=== PATIENT | female | born 2005 | race Caucasian/White ===

== ENCOUNTER 2025-04-21 15:09 | Emergency (ER) | payer BC, SELFPAY ==
[2025-04-21] VITALS (9 sets, daily range): BP systolic 130–151; BP diastolic 76–93; PULSE 85–112; RESP 16; TEMP 36.9; O2SAT 97–100; BMI 31.9
--- OUTSIDE RECORDS SUMMARY | 2025-04-21 15:11 | XMS_ITS | Clinical Summary ---
Author Organization [facility] Address [address] [place] [id number] Care Team Providers Care Volunteer Services Director Name Role Phone Heike Bradley Primary Care Provider Allergies Active Allergy Reactions Criticality Noted Date Comments [place] Flavor Vomiting 03/13/2015 Milk Runny Nose 03/13/2015 Medications triamcinolone 0.5 % ointmentIndicat ions:Chronic eczema Apply topically to affected area(s) two times daily. 15 g 3 5 Active triamcinolone (ARISTOCORT) 0.1 % ointmentIndicat ions:Chronic eczema Apply topically to affected area(s) 2 times daily. Use for up to 2 weeks at a time. 30 g 1 2 04/14/20 25 Discontinu ed(*Medica tion adjustment ) Hospital, Clinic, or Other Facility Administered Medication Ordered Dose Route Frequency Start Date End Date Status medroxyPROGESTERone acetate (contraceptive) (DEPO-PROVERA) injection 150 mgIndications:Encount er for initial prescription of injectable contraceptive 150 mg IM Q 3 MONTHS (12 WEEKS) 03/06/2025 02/05/2026 Active Active Problems No known active problems Encounters Date Type Department Care Team Description 04/21/2025 Nurse Triage [facility] [address] [place] [address] Heike Bradley PA Headache; Neurologic Problem 04/14/2025 1:40 PM CDT Office Visit [facility] [address] [facility] [id number] Heike Bradley PA Well Child (19 years old); Medication Management (Discuss depo and how its going, will need orders for next shot); Derm Problem (Check rash in armpit and now has spot on check); Concerns (Head feels pressure and ears get static, only lasts for a couple minutes. This happens twice a week this summer) 04/13/2025 Travel 03/06/2025 1:15 PM CDT Nurse/Clinic Staff Only [facility] [address] [facility] [id number] Immunization/Injecti on (DEPO-PROVERA INJECTION ) 03/05/2025 Travel from Last 3 Months Immunizations Immunization Administration Dates Next Due DTaP 10/31/2006 [id number] (Pediarix) 01/09/2006,2005,1 DTaP-IPV (Kinrix) 07/20/2010 HIB PRP-OMP (PedvaxHIB) 10/31/2006,2005, HPV 9 (Gardasil 9) 04/14/2020,04/15/2019 Hepatitis A (Peds) 07/13/2007,10/31/2006 MENINGOCOCCAL VACCINE 2 VIAL 2MO-55YO (MENVEO) 03/23/2022,04/21/2017 MMR 07/20/2010,07/21/2006 Meningococcal B 04/12/2024 Pneumococcal conj 13-Valent (Prevnar 13) 07/20/2010 Pneumococcal conj 7-Valent (Prevnar 7) 0 10/31/2006,01/09/2006,2005,09/08 Tdap 04/21/2017 Varicella Vaccine 07/21/2006 Family History Medical History Relation Name Comments Good Health Brother Hypertension Father Diabetes Maternal Grandfather Atrial fibrillation Maternal Grandmother Allergies Mother Relation Name Status Comments Brother Alive Father Alive Maternal Grandfather Alive Maternal Grandmother Alive Mother Alive Paternal Grandfather Paternal Grandmother Alive Social History Tobacco Use Types Packs/Day Years Used Date Smoking Tobacco: Never Smokeless Tobacco: Never Tobacco Cessation:Counseling Given: Yes Comments:no passive smoke exposure Alcohol Use Standard Drinks/Week Comments Never 0 (1 standard drink = 0.6 oz pur e alcohol) PHQ-2 Answer Date Recorded PHQ-2 TOTAL SCORE 0 04/14/2025 Social Connections Answer Date Recorded Do you often feel lonely or isolated from those around you? 0 04/14/2025 Financial Resource Strain Answer Date R ecorded Difficulty of Paying Living Expenses 3 04/14/2025 Difficulty of Paying Living Expenses Not on file 04/14/2025 Food Insecurity Answer Date Recorded Do you worry your food will run out before you are able to buy more? 1 04/14/2025 Transportation Needs Answer Date Record ed Does lack of transportation keep you from medica l appointments? 1 04/14/2025 Does lack of transportation keep you from work, meetings or getting things that you need? 1 04/14/2025 Housing Stability Answer Date Recorded What is your housing situation today? 1 04/14/2025 Utilities Answer Date Recorded Do you have trouble paying f or utilities (for example, heat, electricity, water, phone)? 1 04/14/2025 Comments No Sex and Gender Information Value Date Recorded Sex Assigned at Not on file Legal Sex Female 7:12 AM [employer] Gender Identity Not on file Sexual Orientation Not on file Travel History Travel Start Travel End [place] 04/05/2025 04/05/2025 Obstetrics History Last Filed Vital Signs Vital Sign Reading Time Taken Comments Blood Pressure 123/77 04/14/2025 1:44 PM CDT Pulse 121 04/14/2025 1:44 PM CDT Temperature 36.9 C (98.5 F) 06/21/2023 9:51 AM CDT Respiratory Rate 14 06/21/2023 9:51 AM CDT Oxygen Saturation 100% 03/06/2025 1:29 PM CDT Inhaled Oxygen Concentration - - Weight 81.6 kg (180 lb) 04/14/2025 1:44 PM CDT Height 160.3 cm (5' 3.1) 04/14/2025 1:44 PM CDT Head Circumference 86 cm 07/13/2007 2:08 PM CDT Head Circumference Percentile 100.00% 07/13/2007 2:08 PM CDT Growth Chart: CDC (Girls, 0- 36 Months) Body Mass Index 31.78 04/14/2025 1:44 PM CDT Plan of Treatment Health Maintenance Due Date Last Done Comments Hepatitis C screening for age 18-79 2023 COVID-19 vaccine series ( season) 2024 02/20/2021, 01/30/2021 Chlamydia for age 16-24 04/12/2025 04/12/2024 Influenza Vaccine (#1) 2025 BMI (ht and wt on same day) for age 18+ 04/14/2026 04/14/2025, 04/12/2024 Depression screening for age 12+ 04/14/2026 04/14/2025, 04/12/2024, 02/22/2023, Additional history exists Well Child Check for age 3-20 04/14/2026 04/14/2025, 04/12/2024, 02/22/2023, Additional history exists Tetanus booster 04/21/2027 04/21/2017 Hepatitis B series for 19+ Completed 01/09, 2005, 2005 Pneumococcal series for age 6-49 Aged Out 07/20/2010, 10/31/2006, 01/09/2006, Additional history exists No longer eligible based on patient's age to complete this topic HPV series for age 9-26 Completed 04/14/2020, 04/15 Meningococcal series for age 11-21 Completed 03/23/2022, 04/21/2017 HIV for age 15-65 Completed 02/22/2023 Procedures Procedure Name Priority Date/Time Associated Diagnosis Comments GC CHLAMYDIA TRACH PROBE Routine 04/12/2024 11:20 AM CDT Screen for STD (sexually transmitted disease) LC HIV-1/O/2, 4TH GENERATION Routine 02/22/2023 3:28 PM CDT Screening for HIV (human immunodeficiency virus) from Last 3 Months or Most Recently Relevant to Health Maintenance Results * GC CHLAMYDIA TRACH PROBE (04/12/2024 11:20 AM CDT) CHLAMYDIA PROBE Negative 4:15 AM CDT [facility] N GONORRHOEAE PROBE Negative 04/13/2024 4:15 AM CDT [facility] Other URINE SPECIMEN / Unknown Non-Blood / Unknown 04/12/2024 11:20 AM CDT 04/12/2024 11:36 AM CDT Soila Ortega MD MICROBIOLOGY Final R esult [facility] [address] [place] [address], * HIV-1/O/2, 4TH GENERATION (02/22/2023 3:28 PM CDT) [facility] HIV Scr 4th Gen Non Reactive Non Reactive 02/25/2023 8:[address] [facility] ([facility]) Comment: HIV Negative HIV-1/HIV-2 antibodies and HIV-1 p24 antigen were NOT detected. There is no laboratory evidence of HIV infection. Blood BLOOD SPECIMEN / Unknown Venipuncture / Unknown 02/22/2023 3:28 PM CDT 02/22/2023 3:30 PM CDT Narrative [facility] ([facility]) - 02/25/2023 8:36 AM CDT Performed at: [address] [place] [id number] Paper Box Maker: Dante Rich MD, Phone: [phone] Soila Ortega MD LABORATORY Final R esult [facility] ([facility]) [address] [place] [id number], from Last 3 Months or Most Recently Relevant to Health Maintenance Insurance [facility] [employer] Care Teams Volunteer Services Director Relationship Specialty Start Date End Date Heike Bradley PA [address] [place] [address] PCP - General Physician Refrigeration Houseman 03/19/25
--- NOTE | 2025-04-21 18:41 | ED.NEUROSD ---
HPI - Neuro Symptoms/Deficit General Time Seen by Provider: 18:41 <Radha Forrester MD - Last Filed: 04/22/25 09:56> Date Seen: 04/21/25 <Radha Forrester MD - Last Filed: 04/22/25 09:56> Chief Complaint: Neuro Symptoms/Altered Deficit <Radha Forrester MD - Last Filed: 04/22/25 09:56> Stated Complaint: bells palsy symptoms <Radha Forrester MD - Last Filed: 04/22/25 09:56> Time Seen by Provider: 04/21/25 18:40 <Radha Forrester MD - Last Filed: 04/22/25 09:56> Source: patient and RN notes reviewed <Radha Forrester MD - Last Filed: 04/22/25 09:56> Mode of arrival: ambulatory <Radha Forrester MD - Last Filed: 04/22/25 09:56> Limitations: no limitations <Radha Forrester MD - Last Filed: 04/22/25 09:56> History of Present Illness HPI Narrative: This 19-year-old female was referred by her chiropractor for possibility of right Saucedo's palsy. They did contact the clinic and the clinic told them to call 911. Patient has had right facial numbness, feels like her cheek and lower face on the right side have had anesthesia ill like at the dentist. She has a severe headache with this, it is throughout her head. No visual changes. No ear changes. She still has the taste that is normal in her mouth. She does not feel like she is not blinking, notices no eye dryness or visual changes. She felt like her right eye was hurting with this headache. She does have a history of migraines but has not had 1 for a while. She got glasses which has seemingly helped. When she has had migraines before it sounds as if she almost becomes catatonic and cannot speak, cannot move. She states her hands and feet will become numb and tingly. She is here with her mom. She feels that she is maybe not really using her right side of her face to talk but speech certainly sounds normal to me. Her symptoms started about 10:00 a.m. last night per her report, maybe a bit earlier and nursing report. She has been eating and drinking without any difficulty. Her chiropractor gave her an adjustment and acupuncture. There has been no worsening or improvement in any symptoms since the chiropractor. Her headache is about 6/10. She did noted tick bite about 10 days ago, nursing staff did order Lyme panel in triage thinking that this could be Saucedo's palsy. They are showing me a picture of the tick, it is a classic wood tick with the white brownish [place], it is not reddish like ago deer tick, this is a classic normal wood tick that does not carry Lyme disease or the tick-borne diseases. She has been ambulatory, no arm or leg numbness tingling. <Radha Forrester MD - Last Filed: 04/22/25 09:56> Related Data Home Medications: Home Medications ?Medication ?Instructions ?Recorded ?Confirmed No Known Home Medications 04/21/25 04/21/25 <Radha Forrester MD - Last Filed: 04/22/25 09:56> Allergies/Adverse Reactions: Allergies Allergy/AdvReac Type Severity Reaction Status Date / Time brooke Allergy Unknown Verified 04/21/25 15:25 <Radha Forrester MD - Last Filed: 04/22/25 09:56> Review of Systems Status of ROS: Reports: 6 or more systems reviewed and unremarkable except as noted in History and below <Radha Forrester MD - Last Filed: 04/22/25 09:56> [facility] Social History: Social History How often do you have a drink containing alcohol: never AUDIT-C Alcohol total score: 0 Non-prescribed substance use: denies use <Radha Forrester MD - Last Filed: 04/22/25 09:56> Exam Const: Vital Signs, click to edit/add: Vital Signs - 24 hr 04/21/25 15:19 04/21/25 20:00 04/21/25 20:14 Temperature 98.5 F Pulse Rate 87 Pulse Rate [Pulse Oximeter] 97 Respiratory Rate 16 16 Blood Pressure 136/77 Blood Pressure [Ri ght Upper Arm] 135/82 Pulse Oximetry 99 99 Oxygen Delivery Me thod Room Air 04/21/25 20:15 04/21/25 20:30 04/21/25 20:32 Temperature Pulse Rate 85 91 90 Pulse Rate [Pulse Oximeter] Respiratory Rate Blood Pressure 130/76 Blood Pressure [Ri ght Upper Arm] Pulse Oximetry 98 100 100 Oxygen Delivery Me thod 04/21/25 20:33 04/21/25 22:22 04/21/25 22:23 Temperature Pulse Rate 91 112 H Pulse Rate [Pulse Oximeter] Respiratory Rate Blood Pressure 151/93 H Blood Pressure [Ri t Upper Arm] Pulse Oximetry 97 99 Oxygen Delivery Me thod This 19-year-old female is alert, interactive, no apparent distress. She has full motor function of her face, eyes closed appropriately, watch her blink in both eyes have the same arc of blinking. The right eye does close. Her smile is normal. Resting, there might be a little slight lowering of the right corner of her mouth but her smile is symmetric. Oropharynx is normal, tongue protrudes midline, normal elevation of the soft palate. Dentition good repair, no erythema of the gums. They did worry that she has a wisdom tooth on that right lower jaw that needs to come out, do not see any overt signs of problems. She notes she is not feeling any significant pain from this tooth right now. She feels below the cheek that there is some diminished sensation on light touch, she states it feels softer than on the left side. It is below the zygomatic arch on the cheek above the jaw. Neck is supple, no adenopathy, no thyromegaly masses or nodules. TMs canals are normal, no vesicles or abnormalities noted. Lungs are clear, good air entry, no wheezing crackles. CV regular rate and rhythm, no murmur, normal S1-S2. Abdomen soft, nontender, no organomegaly, rebound or guarding. She has normal symmetrical strength throughout extremities, gait was normal coming in. No tremors, no dysmetria, normal light touch sensation of her arms and legs. <Radha Forrester MD - Last Filed: 04/22/25 09:56> Vital Signs, click to edit/add: Vital Signs - 24 hr 04/21/25 15:19 04/21/25 20:00 04/21/25 20:14 Temperature 98.5 F Pulse Rate 87 Pulse Rate [Pulse Oximeter] 97 Respiratory Rate 16 16 Blood Pressure 136/77 Blood Pressure [Ri ght Upper Arm] 135/82 Pulse Oximetry 99 99 Oxygen Delivery Me thod Room Air 04/21/25 20:15 04/21/25 20:30 04/21/25 20:32 Temperature Pulse Rate 85 91 90 Pulse Rate [Pulse Oximeter] Respiratory Rate Blood Pressure 130/76 Blood Pressure [Ri ght Upper Arm] Pulse Oximetry 98 100 100 Oxygen Delivery Me thod 04/21/25 20:33 04/21/25 22:22 04/21/25 22:23 Temperature Pulse Rate 91 112 H Pulse Rate [Pulse Oximeter] Respiratory Rate Blood Pressure 151/93 H Blood Pressure [Ri ght Upper Arm] Pulse Oximetry 97 99 Oxygen Delivery Me thod <Juan Manuel Rodriguez MD - Last Filed: 04/21/25 22:18> Documenting provider has reviewed patient's vital signs: yes <Radha Forrester MD - Last Filed: 04/22/25 09:56> Course Course ED Course: Have reviewed with them that this absolutely is not meeting criteria for Saucedo's palsy. Her primary complaints are headache and right facial sensory changes. They feel like she might have drooping of the right corner of her mouth but when she smiles she has symmetric smile, she has no difficulty eating. There really is no significant motor changes that I am seeing baseline here. Again, I do not know her and this is my 1st time visiting with her. We did discuss the Saucedo's palsy can take a couple days to develop but this is not classic or meeting criteria. We will do a head CT given her facial numbness and headache. May need to consider MR imaging if she has ongoing symptoms. Will get baseline labs. She has no fever, doubt infectious etiology. This may be migraine with atypical features. <Radha Forrester MD - Last Filed: 04/22/25 09:56> Reevaluation(s) Time of Reevaluation #1: 19:49 <Radha Forrester MD - Last Filed: 04/22/25 09:56> Reevaluation #1: Did review that lactate is mildly elevated at 2.7. Patient states she has been trying to drink fluids. She actually went to a [employer] game on Monday, has been outside a lot more. We did review that this is suggestive of her being relatively dry. Her white blood count and C-reactive protein are normal, other chemistries are normal. Nursing staff is just getting the IV, have ordered normal saline and Toradol to help with her headache symptoms. She does remember that she has had other atypical features with migraines, both of her ears feeling numb and ringing. She is not having that now. We did discuss that the head CT was normal. We did review next up in someone with her symptoms as well as the right facial numbness would be to consider doing an MR imaging. This will help completely rule out any intracranial pathology including demyelinating disease. We do a brain with and without contrast in that situation. She and her mom have decided to proceed with this. I do think it is reasonable as she is presenting with right facial numbness. I do think migraine with atypical features is a possible explanation but I simply cannot rule out other etiologies. Sed rate has subsequently come back normal as well. <Radha Forrester MD - Last Filed: 04/22/25 09:56> Reevaluation #2: Michael -- received this patient at change of shift pending brain MRI with and without. Was reported by mom not to be slurring her speech as much as she had gone already to MRI. MRI is reassuring. Radiology over-read below INDICATION: Headache, right-sided facial paresthesias. TECHNIQUE: Multisequence multiplanar MRI of the brain prior to and following administration of 17 cc Dotarem gadolinium-based intravenous contrast. COMPARISON: None available. FINDINGS: No evidence of acute ischemia. Normal signal intensity of the brain parenchyma. No focus of abnormal enhancement. Incidental left cerebellar developmental venous anomaly. The ventricles are normal in size. Flow voids of the larger intracranial arteries are preserved. Normal calvarial bone marrow signal intensity. Unremarkable orbits. The paranasal sinuses and mastoid air cells are predominantly clear. IMPRESSION: Unremarkable contrast-enhanced MRI of the brain. I do go to discuss findings or lack there of with Moe and her mother. Moe is still reporting a little bit of the tingling in the right cheek and forehead. Perhaps this is still evolution of Saucedo's palsy but certainly she has atypical presentations to her migraines as well. Has normal motor to her face on reassessment. Headache is markedly better with treatment as above. Anticipating discharge at this time. <Juan Manuel Rodriguez MD - Last Filed: 04/21/25 22:18> Vital Signs Vital signs: Initial Vital Signs Temperature 98.5 F 04/21/25 15:19 Temperature Source Temporal Artery Scan 04/21/25 15:19 Pulse Rate 97 04/21/25 15:19 Respiratory Rate 16 04/21/25 15:19 Blood Pressure 135/82 04/21/25 15:19 Blood Pressure Mean 99 04/21/25 15:19 Blood Pressure Position Sitting 04/21/25 15:19 Pulse Oximetry 99 04/21/25 15:19 Oxygen Delivery Method Room Air 04/21/25 15:19 Vital Signs Temperature 98.5 F 04/21/25 15:19 Pulse Rate 97 04/21/25 15:19 Respiratory Rate 16 04/21/25 15:19 Blood Pressure 135/82 04/21/25 15:19 Pulse Oximetry 99 04/21/25 15:19 Oxygen Delivery Method Room Air 04/21/25 15:19 Temperature 98.5 F 04/21/25 15:19 Pulse Rate 112 H 04/21/25 22:22 Respiratory Rate 16 04/21/25 20:00 Blood Pressure 151/93 H 04/21/25 22:23 Pulse Oximetry 99 04/21/25 22:22 Oxygen Delivery Method Room Air 04/21/25 15:19 <Radha Forrester MD - Last Filed: 04/22/25 09:56> Initial Vital Signs Temperature 98.5 F 04/21/25 15:19 Temperature Source Temporal Artery Scan 04/21/25 15:19 Pulse Rate 97 04/21/25 15:19 Respiratory Rate 16 04/21/25 15:19 Blood Pressure 135/82 04/21/25 15:19 Blood Pressure Mean 99 04/21/25 15:19 Blood Pressure Position Sitting 04/21/25 15:19 Pulse Oximetry 99 04/21/25 15:19 Oxygen Delivery Method Room Air 04/21/25 15:19 Vital Signs Temperature 98.5 F 04/21/25 15:19 Pulse Rate 97 04/21/25 15:19 Respiratory Rate 16 04/21/25 15:19 Blood Pressure 135/82 04/21/25 15:19 Pulse Oximetry 99 04/21/25 15:19 Oxygen Delivery Method Room Air 04/21/25 15:19 Temperature 98.5 F 04/21/25 15:19 Pulse Rate 112 H 04/21/25 22:22 Respiratory Rate 16 04/21/25 20:00 Blood Pressure 151/93 H 04/21/25 22:23 Pulse Oximetry 99 04/21/25 22:22 Oxygen Delivery Method Room Air 04/21/25 15:19 <Juan Manuel Rodriguez MD - Last Filed: 04/21/25 22:18> Medications Administered Medications: Discontinued Medications Generic Name Dose Route Start Last Admin Trade Name Freq PRN Reason Stop Dose Admin Sodium Chloride 1,000 mls @ 500 mls/hr 04/21/25 18:57 04/21/25 21:30 0.9 % Sodium Chloride 1000 Ml IV 04/21/25 20:56 Infused .Q2H BOB Infusion Ketorolac Tromethamine 15 mg 04/21/25 19:35 04/21/25 19:47 Ketorolac 15 Mg/Ml Inj IVP 04/21/25 19:36 15 mg ONCE ONE Administration <Radha Forrester MD - Last Filed: 04/22/25 09:56> Discontinued Medications Generic Name Dose Route Start Last Admin Trade Name Freq PRN Reason Stop Dose Admin Sodium Chloride 1,000 mls @ 500 mls/hr 04/21/25 18:57 04/21/25 21:30 0.9 % Sodium Chloride 1000 Ml IV 04/21/25 20:56 Infused .Q2H BOB Infusion Ketorolac Tromethamine 15 mg 04/21/25 19:35 04/21/25 19:47 Ketorolac 15 Mg/Ml Inj IVP 04/21/25 19:36 15 mg ONCE ONE Administration <Juan Manuel Rodriguez MD - Last Filed: 04/21/25 22:18> MDM - Neuro Symptoms/Deficit Lab Data Attestation: I reviewed the patient's lab results. <Radha Forrester MD - Last Filed: 04/22/25 09:56> Labs: Lab Results 04/21/25 Range/Units 15:50 WBC 7.81 (4.50-11.00) K/uL RBC 4.53 (4.00-5.20) m/uL Hgb 13.3 (12.0-16.0) gm/dL Hct 40.7 (33.0-51.0) % MCV 90 (80-100) fL MCH 29 (26-34) pg MCHC 33 (32-36) gm/dL RDW Coeff of Erma 11.8 (11.5-15.5) % Plt Count 376 (140-440) K/uL Neut % (Auto) 58.5 (42.0-72.0) % Lymph % (Auto) 32.4 (20-44) % [place] % (Auto) 6.7 (0.0-11.0) % Eos % (Auto) 1.5 (0.0-7.0) % Baso % (Auto) 0.3 (0.0-3.0) % Neut # (Auto) 4.57 (1.7-7.0) K/uL Lymph # (Auto) 2.53 (0.90-2.90) K/uL [place] # (Auto) 0.50 (0.00-0.90) K/UL Eos # (Auto) 0.12 (0.00-0.50) K/uL Baso # (Auto) 0.02 (0.00-0.30) K/uL Abs Immat Gran (auto) 0.05 (0.00-0.30) K/uL Imm/Tot Granulo (auto) 0.6 % ESR 14 (2-20) mm/hr Sodium 140 (135-149) mmol/L Potassium 4.2 (3.6-5.1) mmol/L Chloride 109 (96-114) mmol/L Carbon Dioxide 20 (20-32) mmol/L Anion Gap 11 (7-15) mEq/L BUN 11 (5-24) mg/dL Creatinine 0.7 (0.6-1.2) mg/dL Estimated Creat Clear 106.93 Estimated GFR 128 ml/min Glucose 122 H (60-115) mg/dL Lactate 2.7 H (0.5-1.9) mmol/L Calcium 10.0 (8.7-10.8) mg/dL C-Reactive Protein < 0.5 L (0.5-1.0) mg/dL <Radha Forrester MD - Last Filed: 04/22/25 09:56> Lab Results 04/21/25 Range/Units 15:50 WBC 7.81 (4.50-11.00) K/uL RBC 4.53 (4.00-5.20) m/uL Hgb 13.3 (12.0-16.0) gm/dL Hct 40.7 (33.0-51.0) % MCV 90 (80-100) fL MCH 29 (26-34) pg MCHC 33 (32-36) gm/dL RDW Coeff of Erma 11.8 (11.5-15.5) % Plt Count 376 (140-440) K/uL Neut % (Auto) 58.5 (42.0-72.0) % Lymph % (Auto) 32.4 (20-44) % [place] % (Auto) 6.7 (0.0-11.0) % Eos % (Auto) 1.5 (0.0-7.0) % Baso % (Auto) 0.3 (0.0-3.0) % Neut # (Auto) 4.57 (1.7-7.0) K/uL Lymph # (Auto) 2.53 (0.90-2.90) K/uL [place] # (Auto) 0.50 (0.00-0.90) K/UL Eos # (Auto) 0.12 (0.00-0.50) K/uL Baso # (Auto) 0.02 (0.00-0.30) K/uL Abs Immat Gran (auto) 0.05 (0.00-0.30) K/uL Imm/Tot Granulo (auto) 0.6 % ESR 14 (2-20) mm/hr Sodium 140 (135-149) mmol/L Potassium 4.2 (3.6-5.1) mmol/L Chloride 109 (96-114) mmol/L Carbon Dioxide 20 (20-32) mmol/L Anion Gap 11 (7-15) mEq/L BUN 11 (5-24) mg/dL Creatinine 0.7 (0.6-1.2) mg/dL Estimated Creat Clear 106.93 Estimated GFR 128 ml/min Glucose 122 H (60-115) mg/dL Lactate 2.7 H (0.5-1.9) mmol/L Calcium 10.0 (8.7-10.8) mg/dL C-Reactive Protein < 0.5 L (0.5-1.0) mg/dL <Juan Manuel Rodriguez MD - Last Filed: 04/21/25 22:18> Imaging Data CT scan - head: Attestation: I have reviewed the pertinent imaging results. <Radha Forrester MD - Last Filed: 04/22/25 09:56> My impression: Did visualize her head CT, did not see any acute intracranial pathology on my preliminary review. <Radha Forrester MD - Last Filed: 04/22/25 09:56> Radiologist's impression: Patient: MOE GUO Facility:[facility] Patient ID:?[id number] Site Patient ID:?[id number]. Site :?[id number] Study:?CT-Head W/O-04/21/2025 7:22:29 PM Ordering Physician:Melo Garcia Final Report: INDICATION: Saucedo`s palsy. Right facial numbness. COMPARISON: None. TECHNIQUE: Noncontrast CT head. FINDINGS: Normal brain parenchymal morphology. No acute intracranial hemorrhage, acute infarct, focal edema, mass effect, or fracture. No midline shift. No abnormal ventricular dilatation. Normal calvarium and skull base. Visualized paranasal sinuses mastoid air cells are clear. Normal orbits bilaterally. IMPRESSION: 1. No acute intracranial abnormality. Please note that all CT scans at this facility use dose modulation, iterative reconstruction, and/or weight-based dosing when appropriate to reduce radiation dose to as low as reasonably achievable. Dictated by Jose Roberto Cole MD @ 04/21/2025 7:35:48 PM (Electronic Signature) <Radha Forrester MD - Last Filed: 04/22/25 09:56> Discharge Plan Discharge Clinical Impression: Paresthesia, Headache <Radha Forrester MD - Last Filed: 04/22/25 09:56> Patient Disposition: Home w/ Parent or Adult <Radha Forrester MD - Last Filed: 04/22/25 09:56> Condition: Improved <Radha Forrester MD - Last Filed: 04/22/25 09:56> Additional Instructions: I hope you can have a good night's rest. I am anticipating you feeling back to normal in the morning. Be seen though for marked increase in your headache, new and focal weakness, this may also include your face. <Radha Forrester MD - Last Filed: 04/22/25 09:56> Prescriptions: No Action No Known Home Medications <Radha Forrester MD - Last Filed: 04/22/25 09:56> Follow Up/Referrals: Soila Ortega MD [Staff Physician, Family Practice] <Radha Forrester MD - Last Filed: 04/22/25 09:56> Stand Alone Forms: [employer] Info Instructions <Radha Forrester MD - Last Filed: 04/22/25 09:56>
--- NOTE | 2025-04-21 18:51 | CRLHL7_ITS ---
For Patients: As a result of the Century Cures Act, medical imaging exams and procedure reports are released immediately into your electronic medical record. You may view this report before your referring provider. If you have questions, please contact your health care provider. INDICATION: Saucedo`s palsy. Right facial numbness. COMPARISON: None. TECHNIQUE: Noncontrast CT head. FINDINGS: Normal brain parenchymal morphology. No acute intracranial hemorrhage, acute infarct, focal edema, mass effect, or fracture. No midline shift. No abnormal ventricular dilatation. Normal calvarium and skull base. Visualized paranasal sinuses mastoid air cells are clear. Normal orbits bilaterally. IMPRESSION: 1. No acute intracranial abnormality. Please note that all CT scans at this facility use dose modulation, iterative reconstruction, and/or weight-based dosing when appropriate to reduce radiation dose to as low as reasonably achievable. Dictated by Jose Roberto Cole MD @ 04/21/2025 7:35:48 PM (Electronically Signed)
[2025-04-21 19:06] LABS: Hematocrit 40.7 % (33.0-51.0); Hemoglobin* 13.3 gm/dL (12.0-16.0); Immature Granulocytes Abs Auto 0.05 K/uL (0.00-0.30); Immature Granulocytes Pct Auto 0.6 %; Lymphocytes Absolute Auto 2.53 K/uL (0.90-2.90); Mean Corpuscular HGB Conc 33 gm/dL (32-36); Mean Corpuscular Hemoglobin 29 pg (26-34); Mean Corpuscular Volume 90 fL (80-100); RDW Coefficient of Variation % 11.8 % (11.5-15.5); Red Blood Count 4.53 m/uL (4.00-5.20); White Blood Count* 7.81 K/uL (4.50-11.00)
[2025-04-21 19:08] LABS: Chloride* 109 mmol/L (96-114); Sodium* 140 mmol/L (135-149)
[2025-04-21 19:09] LABS: Potassium* 4.2 mmol/L (3.6-5.1)
[2025-04-21 19:12] LABS: Anion Gap 11 mEq/L (7-15); Blood Urea Nitrogen* 11 mg/dL (5-24); Calcium* 10.0 mg/dL (8.7-10.8); Carbon Dioxide* 20 mmol/L (20-32); Creatinine* 0.7 mg/dL (0.6-1.2); Est. Creatinine Clearance* 106.93; Estimated Glomerular Filt Rate 128 ml/min; Glucose* 122 mg/dL (60-115)
[2025-04-21 19:13] LABS: Slide Review Reflex No
[2025-04-21 19:21] LABS: Lactate* 2.7 mmol/L (0.5-1.9)
--- NOTE | 2025-04-21 19:53 | CRLHL7_ITS ---
For Patients: As a result of the Century Cures Act, medical imaging exams and procedure reports are released immediately into your electronic medical record. You may view this report before your referring provider. If you have questions, please contact your health care provider. INDICATION: Headache, right-sided facial paresthesias. TECHNIQUE: Multisequence multiplanar MRI of the brain prior to and following administration of 17 cc Dotarem gadolinium-based intravenous contrast. COMPARISON: None available. FINDINGS: No evidence of acute ischemia. Normal signal intensity of the brain parenchyma. No focus of abnormal enhancement. Incidental left cerebellar developmental venous anomaly. The ventricles are normal in size. Flow voids of the larger intracranial arteries are preserved. Normal calvarial bone marrow signal intensity. Unremarkable orbits. The paranasal sinuses and mastoid air cells are predominantly clear. IMPRESSION: Unremarkable contrast-enhanced MRI of the brain. Dictated by Prosper Cole MD @ 04/21/2025 9:48:55 PM (Electronically Signed)
[2025-04-21 19:54] LABS: Erythrocyte SedimentationRate* 14 mm/hr (2-20)
[2025-04-23 04:03] LABS: Lyme ELISA Reflex 0.33 IV (<=0.90)
== END 2025-04-21 22:27 | disposition home or self-care (01) ==
PROVIDERS: Family Medicine; Emergency Provider Family Medicine; PCP Physician Assistant Medical
DX: R20.2 Paresthesia of skin (principal); R51.9 Headache, unspecified
CPT/HCPCS: 70450; 70553; 80048; 83605; 85025; 85651; 86140; 86618; 96374; 99285; A9575; J1885; J7030